=== PATIENT | female | born 1985 | race Caucasian/White ===

== ENCOUNTER 2018-01-27 15:20 | Outpatient (RCR) | payer OTHER, SELFPAY ==
--- NOTE | 2018-01-27 15:30 | IE_ITS ---
Date: January 27, 2018 Referring: AI Pineda M.D. Diagnosis: Plantar fasciitis P.T. 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 This is worse with weight bearing, particularly towards the latter part of the day. This does not interfere with sleeping pattern and is generally comfortable with sitting. A 32 year old female who was seen by myself approximately 2 years ago with plantar fasciitis. She was fitted with semi rigid orthotics, some accommodative type orthotics while waiting for the device to arrive. A couple weeks ago she developed a recurrence of her symptoms along with R forefoot pain. She was referred back to PT. Pain Ratin/10 Pain Location: Throughout the plantar and dorsal aspect of her feet R greater than L. Prior Level of Function: Independent with all ADL's. Current Level of Function: Has pain with with walking more than a couple 100 yards, standing for less than an hour, performing her typical household and recreational activities. 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 Falls in the last year: __X__ No ____Yes - How many? ____ - (if over 2, balance SM needs to be completed) Reported hospitalizations in the last year - __X__ No ____ Yes - Dates of admission/reason: Medications: Amitriptyline, anti-hypertensions. Quality of Life: ____ Excellent ____ Good __x__ Fair ____ Poor Standardized Measures: LEFS score: 34% OBJECTIVE: Posture: Hyperpronator, morbid obesity. Gait: Ambulates with mild antalgia on the R from mid stance to toe off. Heel walking creates some mild plantar heel discomfort, toe walking creates mid foot discomfort on the R. Palpation: Some mild tenderness to palpation throughout the plantar fascia bilaterally. Also between the 2nd and 3rd and 3rd, 4th met heads on the R greater than L as well as the metatarsal joints R foot, mild warmth. Edema: Mild swelling throughout the ankle/foot complex bilaterally. ROM: Bilateral hip, knee, talocrural, subtalar and mid tarsal movements are full and painless with movement other than her R mid foot, [id number] with supination and dorsiflexion. Digit motion is non-irritable (+) pain with MTP compression on the R. Joint Accessory Motion: She has good mobility between the first-5th ray intermetatarsal joints. Strength: Tolerates good resistance to ankle extrinsics including posterior tibialis without pain. Neuro: (-) Tinel sign over the superficial peroneal nerve or tarsal tunnel. Special Tests: Has a forefoot varus of approximately 6 degrees with subtalar neutral. Observation of her current orthotic devices show that she has broken the R orthotic in 06/07 and the L orthotic top cover is completely worn. She has been using her accommodative type orthotics over the last day or two and her symptoms have diminished about 50%. Treatment: IE: [id number] Initial evaluation along with issuing her a pair of over the counter semi rigid orthotics. Direct treatment time: 45 mins Total treatment time: 45 mins ASSESSMENT: Patient is a 32-year-old obese female, referred for PT services with the diagnosis of plantar fasciitis. Patient presents with clinical signs and symptoms consistent with this diagnosis, but also appears to have some inflammation of the R midfoot, possible Concepcion's neuroma, as demonstrated by the following impairment level findings: End range pain with midfoot movements along with MTP compression and tenderness to palpation. Impairments are contributing to the following functional limitations: difficulty standing, walking for any prolonged periods. Patient is assessed as: __X__ Low 02807 ____ Moderate 10163 ____ High 08994 complexity, based on the following: History: (list): Recurrence of plantar fasciitis with midfoot inflammation, and possible Concepcion's Neuroma See comorbidities and social history. Examination: (list): X See above for functional limitations and impairments. Presentation: Stable . X Evolving Unstable Decision-Making: X` Low complexity X Moderate complexity High complexity % Disability based on LEFS of 34% STG: __4__ weeks. 1: Decrease stress to the longitudinal arch to allow healing of plantar fascia and midfoot in hopes that it will normalize her weight bearing activities. LTG: __8__ weeks. 1: Return to premorbid level of function. PLAN: Session today consisted of the evaluation along with issuing her a semi rigid orthotic as well as recommending a better pair of walking shoes with solid heel counter, shank and good cushioning. Minimize any unnecessary weight bearing activities. She has Motrin 600mg at home and she can discuss this with her PCP or pharmacist regarding dosage and use. She will have a follow up in 2 1/2 weeks, unless she exacerbates between now and then, she will contact me. Thank you for this referral. Please do not hesitate to contact me with any questions or concerns regarding this patient's plan of care.
== END 2018-02-03 23:59 | disposition home or self-care (01) ==
LOC: PT 15:20
DX: M72.2 Plantar fascial fibromatosis (principal)
CPT/HCPCS: 97161

== ENCOUNTER 2018-02-17 06:47 | Emergency (ER) | payer OTHER, SELFPAY ==
[2018-02-17 06:50] VITALS: BP 122/86; PULSE 90; RESP 18; TEMP 36.5; O2SAT 99
--- NOTE | 2018-02-17 07:00 | W.ED.GENAD ---
Discharge Plan Disposition Patient Disposition: HOME Condition: Stable Discharge Details Chief Complaint: EyeProblem Clinical Impression: Hordeolum externum of right eye Primary Care Provider: Laurence Wallace ED Provider: K[facility] Home Meds and New Rx's Prescriptions: New sulfamethoxazole-trimethoprim [Bactrim DS] 800-160 mg tablet 1 tab PO DAILY Qty: 14 RF: 0 Continue amitriptyline 25 MG tablet 1 tab PO HS Qty: 90 RF: 4 cholecalciferol (vitamin D3) [Vitamin D3] 2,000 UNIT capsule 2,000 unit PO DAILY Qty: 90 RF: 0 medroxyprogesterone [Provera] 10 MG tablet 10 mg PO DAILY MDD 1 Qty: 10 RF: 0 medroxyprogesterone 10 MG tablet 10 mg PO DAILY 90 Days Qty: 30 RF: 1 hydrochlorothiazide 25 MG tablet 25 mg PO DAILY Qty: 30 RF: 1 metformin 500 MG tablet extended release 24hr 500 mg PO DAILY Qty: 90 RF: 1 miconazole (bulk) 5 GM powder 1 applic Miscellaneous PRN PRNRF: 0 Discharge Instructions Instructions: [facility] (ED) Additional Instructions: if you're not better by next week using warm compresses frequently then start taking the antibiotics if you have deep eye pain, changes in vision or fevers return to the emergency department Discharge Data Discharge Physician: K[facility] Medical Decision Making MDM Narrative Medical decision making narrative: Patient comes in with right upper eye lid swelling since yesterday, denies vision changes or discharge. She has mild swelling and redness to the medial right upper eye and what appears to be a stye in this area. Her conjunctiva is normal without redness or pain. Suspect stye, will have her start warm compresses and will provide abx prescription as she is going on vacation and won't be able to see her pcp if it worsens. Return precautions given. No pain on eomi to suggest orbital cellulitis Differential Diagnosis cellulitis, stye HPI - General Adult General Mode of arrival: ambulatory. Date/Time Provider Initiated Documentation: 02/17/18 06:50. Limitations to Documentation: no limitations. Information obtained by: patient. History of Present Illness 32 year old F presents to the emergency department with the chief complaint of right upper eye lid swelling, described as mild, with intensity rated at 2. Quality is described as burning, and is localized to the face. Patient reports no radiation. Patient started experiencing this day(s) (1) and it has been constant. No relieving factors improve symptom(s), No exacerbating factors reported . Patient notes no other symptoms.. Patient did receive the following treatments prior to arrival, none Related Data Home Medications Medication Instructions Recorded Confirmed miconazole (bulk) 1 applic MISCELLANEOUS PRN PRN 10/25/16 02/17/18 Previous Rx's Medication Instructions Recorded amitriptyline 1 tab PO HS #90 tab-cap 02/24/17 cholecalciferol (vitamin D3) 2,000 unit PO DAILY #90 tab 08/08/17 [Vitamin D3] medroxyprogesterone [Provera] 10 mg PO DAILY #10 t MDD 1 08/15/17 medroxyprogesterone 10 mg PO DAILY 90 Days #30 tab-cap 10/28/17 hydrochlorothiazide 25 mg PO DAILY #30 tab-cap 01/05/18 metformin 500 mg PO DAILY #90 tab-cap 01/05/18 sulfamethoxazole-trimethoprim 1 tab PO DAILY #14 tab 02/17/18 [Bactrim DS] Allergies Allergy/AdvReac Type Severity Reaction Status Date / Time cefaclor Allergy Skin Rash Unverified 02/17/18 06:55 General Stated Complaint: EyeProblem IGNACIO: 4 Review of Systems Review of Systems All systems reviewed & are unremarkable except as noted in HPI and below Constitutional Denies chills, Denies fever(s) and Denies weakness Eyes Patient Denies loss of vision ENT Denies change in voice Cardiovascular Denies chest pain and Denies dyspnea Respiratory Denies dyspnea Gastrointestinal Denies abdominal pain, Denies nausea and Denies vomiting Genitourinary Denies dysuria Musculoskeletal Denies joint swelling Integumentary/Breasts Denies rash Neurologic Denies loss of vision and Denies weakness Psychiatric Denies depression Endocrine Denies cold intolerance and Denies heat intolerance Allergic/Immunologic Reports urticaria PFSH Family History Mother Essential hypertension Father Essential hypertension Hyperlipidemia Brother No problems noted. Grandfather Essential hypertension Hyperlipidemia Cerebrovascular accident Grandfather Heart disease Cerebrovascular accident Multiple sclerosis Grandmother Diabetes Essential hypertension Heart disease Hyperlipidemia Neoplasm Grandmother Essential hypertension Heart disease Hyperlipidemia Myocardial infarction Neoplasm Cerebrovascular accident Maternal Uncle No problems noted. Social History Smoking/Tobacco Use Status: Current every day Surgical History Dilation and curettage (~2007) Ligation of fallopian tube (~2007) Tonsillectomy (~2000) Exam Const General: no acute distress Orientation: alert [facility] Head: normal to inspection Ears: external ears normal General nose exam: external nose normal Mouth: moist mucous membranes Eyes Alignment and Position: alignment normal Eyelids: other (right upper medial eyelid redness and swelling) Cornea: corneas normal Pupils: PERRL EOM: EOM intact bilaterally Neck Neck: normal visual inspection Resp Effort & Inspection: normal respiratory effort and able to speak in complete sentences Cardio Rate: regular rate Skin General skin exam: no rashes or lesions noted Neuro General: alert and oriented x3 Extrem General: normal to inspection Psych Mental Status: mental status grossly normal Course Vital Signs Temperature 36.5 C 02/17/18 06:50 Pulse 90 02/17/18 06:50 Respiratory Rate 18 02/17/18 06:50 Blood Pressure 122/86 02/17/18 06:50 Pulse Oximetry 99 02/17/18 06:50 Temperature 36.5 C 02/17/18 06:50 Pulse 90 02/17/18 06:50 Respiratory Rate 18 02/17/18 06:50 Blood Pressure 122/86 02/17/18 06:50 Pulse Oximetry 99 02/17/18 06:50
--- NOTE | 2018-02-17 07:03 | ED.GENADUL_ITS ---
Discharge Plan Disposition Patient Disposition: HOME Condition: Stable Discharge Details Chief Complaint: EyeProblem Clinical Impression: Hordeolum externum of right eye Primary Care Provider: Laurence Wallace ED Provider: [facility] Home Meds and New Rx's Prescriptions: New sulfamethoxazole-trimethoprim [Bactrim DS] 800-160 mg tablet 1 tab PO DAILY Qty: 14 RF: 0 Continue amitriptyline 25 MG tablet 1 tab PO HS Qty: 90 RF: 4 cholecalciferol (vitamin D3) [Vitamin D3] 2,000 UNIT capsule 2,000 unit PO DAILY Qty: 90 RF: 0 medroxyprogesterone [Provera] 10 MG tablet 10 mg PO DAILY MDD 1 Qty: 10 RF: 0 medroxyprogesterone 10 MG tablet 10 mg PO DAILY 90 Days Qty: 30 RF: 1 hydrochlorothiazide 25 MG tablet 25 mg PO DAILY Qty: 30 RF: 1 metformin 500 MG tablet extended release 24hr 500 mg PO DAILY Qty: 90 RF: 1 miconazole (bulk) 5 GM powder 1 applic Miscellaneous PRN PRNRF: 0 Discharge Instructions Instructions: [facility] (ED) Additional Instructions: if you're not better by next week using warm compresses frequently then start taking the antibiotics if you have deep eye pain, changes in vision or fevers return to the emergency department Discharge Data Discharge Physician: [facility] Medical Decision Making MDM Narrative Medical decision making narrative: Patient comes in with right upper eye lid swelling since yesterday, denies vision changes or discharge. She has mild swelling and redness to the medial right upper eye and what appears to be a stye in this area. Her conjunctiva is normal without redness or pain. Suspect stye, will have her start warm compresses and will provide abx prescription as she is going on vacation and won't be able to see her pcp if it worsens. Return precautions given. No pain on eomi to suggest orbital cellulitis Differential Diagnosis cellulitis, stye HPI - General Adult General Mode of arrival: ambulatory . Date/Time Provider Initiated Documentation: 02/17/18 06:50 . Limitations to Documentation: no limitations . Information obtained by: patient . History of Present Illness 32 year old F presents to the emergency department with the chief complaint of right upper eye lid swelling, described as mild, with intensity rated at 2. Quality is described as burning, and is localized to the face. Patient reports no radiation. Patient started experiencing this day(s) (1) and it has been constant. No relieving factors improve symptom(s), No exacerbating factors reported . Patient notes no other symptoms.. Patient did receive the following treatments prior to arrival, none Related Data Home Medications Medication Instructions Recorded Confirmed miconazole (bulk) 1 applic MISCELLANEOUS PRN PRN 10/25/16 02/17/18 Previous Rx's Medication Instructions Recorded amitriptyline 1 tab PO HS #90 tab-cap 02/24/17 cholecalciferol (vitamin D3) 2,000 unit PO DAILY #90 tab 08/08/17 [Vitamin D3] medroxyprogesterone [Provera] 10 mg PO DAILY #10 t MDD 1 08/15/17 medroxyprogesterone 10 mg PO DAILY 90 Days #30 tab-cap 10/28/17 hydrochlorothiazide 25 mg PO DAILY #30 tab-cap 01/05/18 metformin 500 mg PO DAILY #90 tab-cap 01/05/18 sulfamethoxazole-trimethoprim 1 tab PO DAILY #14 tab 02/17/18 [Bactrim DS] Allergies Allergy/AdvReac Type Severity Reaction Status Date / Time cefaclor Allergy Skin Rash Unverified 02/17/18 06:55 General Stated Complaint: EyeProblem IGNACIO: 4 Review of Systems Review of Systems All systems reviewed & are unremarkable except as noted in HPI and below Constitutional Denies chills, Denies fever(s) and Denies weakness Eyes Patient Denies loss of vision ENT Denies change in voice Cardiovascular Denies chest pain and Denies dyspnea Respiratory Denies dyspnea Gastrointestinal Denies abdominal pain, Denies nausea and Denies vomiting Genitourinary Denies dysuria Musculoskeletal Denies joint swelling Integumentary/Breasts Denies rash Neurologic Denies loss of vision and Denies weakness Psychiatric Denies depression Endocrine Denies cold intolerance and Denies heat intolerance Allergic/Immunologic Reports urticaria PFSH Family History Mother Essential hypertension Father Essential hypertension Hyperlipidemia Brother No problems noted. Grandfather Essential hypertension Hyperlipidemia Cerebrovascular accident Grandfather Heart disease Cerebrovascular accident Multiple sclerosis Grandmother Diabetes Essential hypertension Heart disease Hyperlipidemia Neoplasm Grandmother Essential hypertension Heart disease Hyperlipidemia Myocardial infarction Neoplasm Cerebrovascular accident Maternal Uncle No problems noted. Social History Smoking/Tobacco Use Status: Current every day Surgical History Dilation and curettage (~2007) Ligation of fallopian tube (~2007) Tonsillectomy (~2000) Exam Const General: no acute distress Orientation: alert [facility] Head: normal to inspection Ears: external ears normal General nose exam: external nose normal Mouth: moist mucous membranes Eyes Alignment and Position: alignment normal Eyelids: other (right upper medial eyelid redness and swelling) Cornea: corneas normal Pupils: PERRL EOM: EOM intact bilaterally Neck Neck: normal visual inspection Resp Effort & Inspection: normal respiratory effort and able to speak in complete sentences Cardio Rate: regular rate Skin General skin exam: no rashes or lesions noted Neuro General: alert and oriented x3 Extrem General: normal to inspection Psych Mental Status: mental status grossly normal Course Vital Signs Temperature 36.5 C 02/17/18 06:50 Pulse 90 02/17/18 06:50 Respiratory Rate 18 02/17/18 06:50 Blood Pressure 122/86 02/17/18 06:50 Pulse Oximetry 99 02/17/18 06:50 Temperature 36.5 C 02/17/18 06:50 Pulse 90 02/17/18 06:50 Respiratory Rate 18 02/17/18 06:50 Blood Pressure 122/86 02/17/18 06:50 Pulse Oximetry 99 02/17/18 06:50
== END 2018-02-17 07:09 | disposition home or self-care (01) ==
LOC: ER 07:18
PROVIDERS: Emergency Provider Emergency Medicine
DX: H00.011 Hordeolum externum right upper eyelid (principal)
CPT/HCPCS: 99283

== ENCOUNTER 2018-04-09 07:31 | Emergency (ER) | payer OTHER, SELFPAY ==
[2018-04-09] VITALS (10 sets, daily range): BP systolic 110–144; BP diastolic 73–83; PULSE 92–111; RESP 4–20; TEMP 36.5–37.1; O2SAT 93–97
--- NOTE | 2018-04-09 07:45 | DI.RAD_ITS ---
SYMPTOM/DIAGNOSIS: COUGH CHEST X-RAY: PA and lateral. No priors. Heart size and pulmonary vasculature are within normal limits. There is mild widening of the right paratracheal stripe. This may be due to patient positioning. The lungs are clear. No effusions or pneumothoraces are identified. The bones are intact. IMPRESSION: No acute pulmonary process. 2. Prominence of the right paratracheal stripe. This may be due to patient positioning. Chest x-ray should be considered for re-evaluation.
[2018-04-09] MEDS: Albuterol/Ipratropium 3 ML UPD VIAL UPD ×2 (07:49)
--- NOTE | 2018-04-09 08:12 | ED.GENADUL_ITS ---
Discharge Plan Disposition Patient Disposition: HOME Discharge Details Chief Complaint: RespSymp Clinical Impression: Pneumonia Primary Care Provider: Laurence Wallace ED Provider: Edu Kimbrough Home Meds and New Rx's Prescriptions: New doxycycline hyclate 100 mg capsule 100 mg PO BID Qty: 19 RF: 0 prednisone 20 mg tablet 40 mg PO BID Qty: 8 RF: 0 Continue cholecalciferol (vitamin D3) [Vitamin D3] 2,000 UNIT capsule 2,000 unit PO DAILY Qty: 90 RF: 0 medroxyprogesterone [Provera] 10 MG tablet 10 mg PO DAILY MDD 1 Qty: 10 RF: 0 medroxyprogesterone 10 MG tablet 10 mg PO DAILY 90 Days Qty: 30 RF: 1 metformin 500 MG tablet extended release 24hr 500 mg PO DAILY Qty: 90 RF: 1 amitriptyline 25 mg tablet 25 mg PO HS Qty: 90 RF: 4 hydrochlorothiazide 25 mg tablet 25 mg PO DAILY Qty: 30 RF: 1 miconazole (bulk) 5 GM powder 1 applic Miscellaneous PRN PRNRF: 0 Discharge Instructions Instructions: Pneumonia (ED) Additional Instructions: Please take antibiotic as prescribed. Use prednisone as prescribed. Use albuterol inhaler with spacer 2 puffs every 4 hours as needed for shortness of breath or wheeze. Please contact your primary care physician to arrange follow-up to be seen this week. Call tomorrow. Your chest xray revealed a right paratracheal stripe that is thickened and may be related to mild rotation vs a chronic process -- be sure to discuss this with your doctor as additional outpatient testing will be needed. Return to the ER for any worsening or new concerning symptoms. Stand Alone Forms: Work Release Referrals: Laurence Wallace NP [Primary Care Provider] - Medical Decision Making 8:10 -- 32yo f smoker with cough and SOB the past 2-3 days. Saturating low 90s with expiratory wheeze. Will treat with duoneb x2 and reassess. Plan to check cxr to assess for PNA not apparent on auscultation. 10:30 -- xray reviewed and interpreted by me: Question retrocardiac opacity. Plan to treat for pneumonia. reassessed and wheeze resolved after neb treatment. Plan to give albuterol inhaler with spacer and new product trainer on this use. Plan to treat with prednisone to reduce inflammation as well as doxycycline Walking pulse ox remained stable >95% after nebs. Patient will require close follow-up with pcp this week. HPI General Mode of arrival: ambulatory . Date/Time Provider Initiated Documentation: 04/09/18 07:41 . Limitations to Documentation: no limitations . Information obtained by: patient . HPI Narrative: 32-year-old female smoker, here with chief complaint of cough. Patient notes 2-3 days of persistent and worsening cough. Intermittently productive of yellow sputum. She has associated shortness of breath. No associated chest pain. No leg swelling. No fever. No recent long distance travel. She does note that her children have been sick with cough recently. Related Data Home Medications Medication Instructions Recorded Confirmed miconazole (bulk) 1 applic MISCELLANEOUS PRN PRN 10/25/16 02/17/18 cholecalciferol (vitamin D3) 2,000 unit PO DAILY #90 tab 08/08/17 02/17/18 [Vitamin D3] medroxyprogesterone [Provera] 10 mg PO DAILY #10 t MDD 1 08/15/17 medroxyprogesterone 10 mg PO DAILY 90 Days #30 tab-cap 10/28/17 metformin 500 mg PO DAILY #90 tab-cap 01/05/18 04/09/18 amitriptyline 25 mg tablet 25 mg PO HS #90 tab-cap 02/28/18 04/09/18 hydrochlorothiazide 25 mg tablet 25 mg PO DAILY #30 tab-cap 03/09/18 04/09/18 doxycycline hyclate 100 mg PO BID #19 cap 04/09/18 prednisone 40 mg PO BID #8 tab 04/09/18 Previous Rx's Medication Instructions Recorded cholecalciferol (vitamin D3) 2,000 unit PO DAILY #90 tab 08/08/17 [Vitamin D3] medroxyprogesterone [Provera] 10 mg PO DAILY #10 t MDD 1 08/15/17 medroxyprogesterone 10 mg PO DAILY 90 Days #30 tab-cap 10/28/17 metformin 500 mg PO DAILY #90 tab-cap 01/05/18 amitriptyline 25 mg tablet 25 mg PO HS #90 tab-cap 02/28/18 hydrochlorothiazide 25 mg tablet 25 mg PO DAILY #30 tab-cap 03/09/18 doxycycline hyclate 100 mg PO BID #19 cap 04/09/18 prednisone 40 mg PO BID #8 tab 04/09/18 Allergies Allergy/AdvReac Type Severity Reaction Status Date / Time cefaclor Allergy Skin Rash Unverified 04/09/18 07:40 General Stated Complaint: RespSymp IGNACIO: 3 Review of Systems Review of Systems All systems reviewed & are unremarkable except as noted in HPI and below PFSH Family History Mother Essential hypertension Father Essential hypertension Hyperlipidemia Brother No problems noted. Grandfather Essential hypertension Hyperlipidemia Cerebrovascular accident Grandfather Heart disease Cerebrovascular accident Multiple sclerosis Grandmother Diabetes Essential hypertension Heart disease Hyperlipidemia Neoplasm Grandmother Essential hypertension Heart disease Hyperlipidemia Myocardial infarction Neoplasm Cerebrovascular accident Maternal Uncle No problems noted. Social History Smoking/Tobacco Use Status: Current every day Surgical History Dilation and curettage (~2007) Ligation of fallopian tube (~2007) Tonsillectomy (~2000) Exam Const General: cooperative and no acute distress HENMT Head: normocephalic and atraumatic Mouth: moist mucous membranes Eyes Conjunctivae: normal conjunctivae Sclera: normal sclerae EOM: EOM intact bilaterally Neck Neck: trachea midline and supple Resp Effort & Inspection: able to speak in complete sentences, cough and not labored Auscultation: no rales, no rhonchi and wheezes expiratory wheezes and scattered wheezes Cardio Jugular venous pressure: no JVD Rate: regular rate and not tachycardic Rhythm: regular rhythm GI Palpation: soft, not firm, no guarding, no masses, not rigid and nontender Skin General skin exam: no rashes or lesions noted Neuro General: alert, awake, oriented x3 and tone normal Extrem General: no edema Psych Appearance: grossly normal Mental Status: mental status grossly normal Speech and Movement: speech and movement normal Course Vital Signs Temperature 36.8 C 04/09/18 07:37 Pulse 111 H 04/09/18 07:37 Respiratory Rate 20 04/09/18 07:37 Blood Pressure 144/83 H 04/09/18 07:37 Pulse Oximetry 94 L 04/09/18 07:37 Temperature 36.8 C 04/09/18 07:37 Temperature Source Temporal Artery Scan 04/09/18 07:37 Pulse 110 H 04/09/18 07:49 Respiratory Rate 20 04/09/18 07:37 Respiratory Effort 04/09/18 07:42 Respiratory Depth Shallow 04/09/18 07:42 Blood Pressure 144/83 H 04/09/18 07:37 Blood Pressure Position Sitting 04/09/18 07:37 Pulse Oximetry 93 L 04/09/18 07:49 Oxygen Delivery Method Room Air 04/09/18 07:49 Oxygen Flow Rate 0 04/09/18 07:49 Pain Level 0 04/09/18 07:37
--- NOTE | 2018-04-09 10:27 | NUR.NOTE ---
Nursing Note: walked in hallway to lab--Sao2 94-95--pulse 100 to 118
[2018-04-09] MEDS: predniSONE 20 MG TAB 60 MG PO (10:32)
[2018-04-09] MEDS: Albuterol HFA 8 GM 60 PUFF INH IH (10:33)
[2018-04-09] MEDS: Inhaler, Assist Device 1 EACH MC (10:33)
[2018-04-09] MEDS: Doxycycline Hyclate 100 MG CAP PO (10:33)
--- NOTE | 2018-04-09 10:40 | DI.VRAD_ITS ---
EXAM: XR Chest, 2 Views EXAM DATE/TIME: 04/09/2018 9:34 AM CLINICAL HISTORY: 32 years old, female; Signs and symptoms; Other: Cough; Additional info: Cought and SOB for 2wks TECHNIQUE: XR of the chest, 2 views. COMPARISON: No relevant prior studies available. FINDINGS: Lungs: The RIGHT paratracheal stripe is thickened which may be accentuated by patient's mild rotation. No consolidation. Mild linear scarring versus subsegmental atelectasis LEFT lung base. Pleural space: No pleural effusion. No pneumothorax. Heart/Mediastinum: No cardiomegaly. Bones/joints: Unremarkable. IMPRESSION: 1. No definite acute pulmonary process. 2. The RIGHT paratracheal stripe is thickened which may be accentuated by patient's rotation. Followup study is recommended. Dictated and Authenticated by: Emma Melissa MD. Ordering:MICAH GONZALEZ MD
--- NOTE | 2018-04-12 10:39 | NUR.NOTE ---
Nursing Note: A follow up appointment was made with [facility] for 04/13 for follow up to patient's ER visit for asthma/pneumonia on 04/09/18.
== END 2018-04-09 11:17 | disposition home or self-care (01) ==
PROVIDERS: Emergency Provider Student in an Organized Health Care Education/Training Program
DX: J18.9 Pneumonia, unspecified organism (principal); R06.02 Shortness of breath; F17.210 Nicotine dependence, cigarettes, uncomplicated; R91.8 Other nonspecific abnormal finding of lung field
CPT/HCPCS: 94640; 99284; 71046; 99285; J7512; J7620

== ENCOUNTER 2018-06-05 10:15 | Outpatient (CLI) | payer OTHER, SELFPAY ==
[2018-06-05 11:39] LABS: ALT 34 U/L (12-78); AST 13 U/L (15-37); Alkaline Phosphatase 92 U/L (46-116); Anion Gap 6.3 mmol/L (3-11); BUN 14 mg/dL (7-18); Bilirubin, Total 0.3 mg/dL (0.2-1.0); CO2 30.7 mmol/L (21.0-32.0); CREATININE 0.99 mg/dL (0.55-1.02); Calcium 8.4 mg/dL (8.5-10.1); Chloride 104 mmol/L (98-107); Glucose 114 mg/dL (70-100); Potassium 4.6 mmol/L (3.5-5.1); Sodium 141 mmol/L (136-145); Total Protein 6.4 g/dL (6.4-8.2)
[2018-06-05 11:55] LABS: Hemoglobin A1C 6.9 % (4.5-6.2)
[2018-06-05 13:06] LABS: Vitamin D 25 Total 38.1 ng/ml (30-100)
== END 2018-06-05 10:35 ==
DX: R73.01 Impaired fasting glucose (principal); G47.33 Obstructive sleep apnea (adult) (pediatric); E55.9 Vitamin D deficiency, unspecified; R53.83 Other fatigue
CPT/HCPCS: 36415; 80053; 82306; 83036

== ENCOUNTER 2018-07-06 10:02 | Emergency (ER) | payer OTHER, SELFPAY ==
[2018-07-06 10:28] VITALS: BP 132/87; PULSE 105; RESP 20; TEMP 36.5; O2SAT 96
[2018-07-06 10:30] VITALS: BP 132/87; PULSE 106; RESP 18; TEMP 36.5; O2SAT 96
--- NOTE | 2018-07-06 10:44 | ED.GENADUL_ITS ---
Discharge Plan Disposition Patient Disposition: HOME Condition: Stable Discharge Details Chief Complaint: EarProblem Clinical Impression: Acute serous otitis media of right ear, URI (upper respiratory infection) Primary Care Provider: Edi Villarreal ED Provider: Manuel Grady Home Meds and New Rx's Prescriptions: New fluticasone [Flonase Allergy Relief] 50 mcg/actuation spray,suspension 1 spray JENNIFER DAILY 14 Days RF: 0 Continued Ventolin HFA 90 mcg/actuation HFA aerosol inhaler 2 puff IH Q4H RF: 0 escitalopram oxalate 10 mg tablet 10 mg PO DAILY Qty: 30 RF: 2 cholecalciferol (vitamin D3) [Vitamin D3] 2,000 UNIT capsule 2,000 unit PO DAILY Qty: 90 RF: 0 amitriptyline 25 mg tablet 25 mg PO HS Qty: 90 RF: 4 metformin 500 mg tablet extended release 24hr 1,000 mg PO DAILY Qty: 180 RF: 1 miconazole (bulk) 5 GM powder 1 applic Miscellaneous PRN PRNRF: 0 Discharge Instructions Instructions: Upper Respiratory Infection (ED), Serous Otitis Media (ED) Additional Instructions: Return to the emergency department as needed for any new or worsening symptoms that are significant otherwise use Flonase daily for the next 2 weeks and [id number] nasal spray or irrigant. Follow-up with primary care provider if not improving over the next 2-4 weeks. Referrals: Edi Villarreal [Primary Care Provider] - (As needed for reassessment) Discharge Data Discharge Date/Time-TO BE ENTERED AT DEPARTURE: 07/06/18 11:12 Medical Decision Making Patient presenting the emergency department for chief complaint of 2 days of earache. She states that she last night felt throbbing pain to her ear. She does state recent malaise and nasal congestion otherwise typical viral cold symptoms that she is not concerned about mostly concerned about her ear. Patient denies any fever chills, dizziness, severe headache. Physical exam shows some bulging to the right TM with clear fluid present behind otherwise HEENT, respiratory and other examination is unremarkable. No mastoid tenderness is noted along with no lymphadenopathy. Concern for serous otitis media secondary to upper respiratory tract infection presumably viral in nature. Patient encouraged to do nasal saline rinse/irrigant, Flonase, and use ibuprofen as needed for discomfort. Patient to follow-up with primary care provider as needed or return for any new or significant worsening of symptoms. After discussion of diagnosis and plan of care patient has no further needs, que stions, or concerns and states clear understanding to return to the emergency department for any worsening symptoms. HPI General Mode of arrival: ambulatory . Date/Time Provider Initiated Documentation: 07/06/18 10:30 . Limitations to Documentation: no limitations . Information obtained by: patient and RN notes reviewed . History of Present Illness 33 year old F presents to the emergency department with the chief complaint of right ear pain, described as mild, with intensity rated at 5. Quality is described as aching (throbbing), and is localized to the right (ear). Patient started experiencing this day(s) (2) and it has been constant. No relieving factors improve symptom(s), No exacerbating factors reported . Patient did receive the following treatments prior to arrival, none Related Data Home Medications Medication Instructions Recorded Confirmed miconazole (bulk) 1 applic MISCELLANEOUS PRN PRN 10/25/16 07/06/18 cholecalciferol (vitamin D3) 2,000 unit PO DAILY #90 tab 08/08/17 07/06/18 [Vitamin D3] amitriptyline 25 mg tablet 25 mg PO HS #90 tab-cap 02/28/18 07/06/18 albuterol sulfate HFA 90 2 puff IH Q4H gm 04/10/18 07/06/18 mcg/actuation aerosol inhaler escitalopram 10 mg tablet 10 mg PO DAILY #30 tab 06/07/18 07/06/18 metformin ER 500 mg 1,000 mg PO DAILY #180 tab-cap 06/08/18 07/06/18 tablet,extended release 24hr fluticasone [Flonase Allergy 1 spray JENNIFER DAILY 14 Days gm 07/06/18 Relief] Previous Rx's Medication Instructions Recorded cholecalciferol (vitamin D3) 2,000 unit PO DAILY #90 tab 08/08/17 [Vitamin D3] amitriptyline 25 mg tablet 25 mg PO HS #90 tab-cap 02/28/18 escitalopram 10 mg tablet 10 mg PO DAILY #30 tab 06/07/18 metformin ER 500 mg 1,000 mg PO DAILY #180 tab-cap 06/08/18 tablet,extended release 24hr fluticasone [Flonase Allergy 1 spray JENNIFER DAILY 14 Days gm 07/06/18 Relief] Allergies Allergy/AdvReac Type Severity Reaction Status Date / Time cefaclor Allergy Skin Rash Verified 06/07/18 15:39 General Stated Complaint: EarProblem IGNACIO: 5 Review of Systems Constitutional Denies chills, Denies fever(s) and Denies headache(s) ENT Reports as per HPI, Denies dizziness, Reports otalgia, Denies headache(s), Reports nasal congestion, Reports nasal discharge, Denies nasal obstruction, Denies sinus pain, Denies sore throat and Denies throat swelling Respiratory Denies cough Neurologic Denies dizziness and Denies headache(s) Allergic/Immunologic Denies throat swelling PFSH Surgical History Dilation and curettage (~2007) Ligation of fallopian tube (~2007) Tonsillectomy (~2000) Family History Mother Essential hypertension Hyperlipidemia Father Essential hypertension Hyperlipidemia Maternal Grandfather Essential hypertension Hyperlipidemia Stroke Paternal Grandfather Heart disease Stroke Multiple sclerosis Hyperlipidemia Maternal Grandmother Diabetes Essential hypertension Heart disease Hyperlipidemia Breast cancer Stomach cancer Ovarian ca Bladder cancer Paternal Grandmother Essential hypertension Heart disease Hyperlipidemia Myocardial infarction Neoplasm Stroke Social History household members: children housing: house pets and animals: Yes pets and animals: cat(s), dog(s) and other details: 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 [employer]OG Smoking/Tobacco Use Status: Former Tobacco Use how long ago did patient quit smoking: APR 2018 second hand exposure: Yes alcohol intake: current alcohol intake frequency: holidays/special occasions only Alcohol type: beer substance use type: does not use airam/shinto: Denominational Exam Const General: cooperative, comfortable and no acute distress Orientation: alert and awake HENIA Head: normal to inspection, normocephalic and atraumatic Ears: hearing grossly normal bilaterally, TM normal on the left, mastoids no rmal, no periauricular adenopathy and TM abnormal with fluid behind the TM on the right (clear) and with loss of landmarks on the right General nose exam: external nose normal Face and sinus: normal facial exam and no erythema Neck Neck: normal visual inspection, full ROM, no lymphadenopathy, no meningeal signs, trachea midline and supple Neuro General: alert, awake, oriented x3, gait normal and moves all extremities Cognition: normal cognition Speech: speech normal Course Vital Signs Temperature 36.5 C 07/06/18 10:28 Pulse 105 H 07/06/18 10:28 Respiratory Rate 20 07/06/18 10:28 Blood Pressure 132/87 07/06/18 10:28 Pulse Oximetry 96 07/06/18 10:28 Temperature 36.5 C 07/06/18 10:30 Temperature Source Temporal Artery Scan 07/06/18 10:28 Pulse 106 H 07/06/18 10:30 Respiratory Rate 18 07/06/18 10:30 Respiratory Effort Non-Labored 07/06/18 10:32 Blood Pressure 132/87 07/06/18 10:30 Blood Pressure Position Sitting 07/06/18 10:30 Pulse Oximetry 96 07/06/18 10:30 Oxygen Delivery Method Room Air 07/06/18 10:30 Oxygen Flow Rate 0 07/06/18 10:30 Pain Level 5 07/06/18 10:30
== END 2018-07-06 11:12 | disposition home or self-care (01) ==
PROVIDERS: Emergency Provider Nurse Practitioner Family; PCP Family Medicine
DX: H65.01 Acute serous otitis media, right ear (principal); J06.9 Acute upper respiratory infection, unspecified
CPT/HCPCS: 99283

== ENCOUNTER 2019-04-12 16:46 | Outpatient (REF) | payer BC, SELFPAY ==
--- NOTE | 2019-04-12 15:10 | ENDOMET_PTH ---
PATIENT: Clarita Sherman LOC: [facility] U#:[id number] AGE/SX: 33/F ROOM: RE04/12/[address]: Jamar Amezcua MD : 1985 BED: DIS: 04/12/2019 SPEC #: [id number] RECD: 04/12/19 17:23 STATUS: HYACINTH REQ #: [id number] SHASHA: 04/12/19 15:[address]: Jamar Amezcua DEPT: Surgical Specimen RECD BY: Geno Goldman ENTERED: 04/12/19 17:24 SP TYPE: Endomet OTHR DR: Laurence Wallace APRN Tissues: 1 - ENDOMETRIUM BX/CURRETTE Procedures: GROSS AND MICRO LEVEL 4 Comments: [id number]
== END 2019-04-12 17:06 ==
LOC: LBN 16:46
PROVIDERS: Visit Provider Obstetrics & Gynecology
DX: N84.0 Polyp of corpus uteri (principal); N85.00 Endometrial hyperplasia, unspecified; N92.0 Excessive and frequent menstruation with regular cycle
CPT/HCPCS: 88305

== ENCOUNTER 2019-06-10 14:09 | Emergency (ER) | payer BC, SELFPAY ==
[2019-06-10 14:20] VITALS: BP 137/92; PULSE 75; RESP 18; TEMP 37.1; O2SAT 96
--- NOTE | 2019-06-10 16:06 | W.ED.GENAD ---
Discharge Plan Disposition Patient Disposition: HOME Condition: Stable Discharge Details Chief Complaint: RespSymp Clinical Impression: Thoracic myofascial strain Primary Care Provider: Laurence Wallace ED Provider: Fariha Mcmillan Home Meds and New Rx's Prescriptions: New methocarbamol 500 mg tablet 500 mg PO Q6H PRN (Reason: muscle spasm) Qty: 14 RF: 0 No Action albuterol sulfate [Ventolin HFA] 90 mcg/actuation HFA aerosol inhaler 2 puff IH Q4H PRN (Reason: shortness of breath or wheezing) Qty: 8.5 RF: 0 escitalopram oxalate 20 mg tablet 20 mg PO DAILY Qty: 30 RF: 11 amitriptyline 25 mg tablet 25 mg PO HS Qty: 90 RF: 4 norethindrone acetate 5 mg tablet 5 mg PO BID Qty: 45 RF: 2 Discharge Instructions Instructions: Muscle Strain (ED) Additional Instructions: Alternate ice and heat to the affected area several times daily for 20 minutes at a time. Alternate tylenol and motrin as needed and directed for pain. Take the muscle relaxer as needed and directed for pain. You can purchase [id number] lidocaine patches to use as needed and directed. Follow-up with your primary care doctor in 1 week. Return to the emergency department with any worsening or new concerning symptoms. Discharge Data Discharge Date/Time-TO BE ENTERED AT DEPARTURE: 06/10/19 16:56 Discharge Physician: Fariha Mcmillan Medical Decision Making 34-year-old female presents with right-sided mid back pain with radiation to right lower ribs that started after she coughed earlier today. She states she has had a cough with nasal congestion for 2 weeks but states this is now resolving. She denies any recent fever. She states she has a good appetite. She states she coughed forcefully in the car earlier and felt a sudden onset of right-sided mid back pain. She also admits to pain under her right lower lateral ribs that is tender to palpation. She states she did have a bilateral anterior rib pain due to coughing recently but this is now resolving. Influenza obtained on arrival and negative. She appears nontoxic. Vitals within normal limits. She is texting on phone on arrival to room. Patient has significant tenderness to palpation of her right mid back without evidence of rash, infection or trauma. Lungs clear. Normal ENT exam. Appears consistent with thoracic myofascial strain. She had a Lidoderm patch placed and given a dose of Toradol and Valium and had significant relief of pain. She was sent home with a prescription for Robaxin and advised to purchase [id number]-ury-[id number] lidocaine patches and alternate Tylenol and Motrin for pain. Advised to follow up with the primary care doctor for re-evaluation. Usual and customary return precautions given prior to discharge. Medical Records Medical records reviewed: Yes I reviewed the patient's medical records. Lab Data Lab results reviewed: Yes I reviewed the patient's lab results. Labs: Influenza negative HPI General Date/Time Provider Initiated Documentation: 06/10/19 14:34. History of Present Illness 34 year old F presents to the emergency department with the chief complaint of Right mid back pain, Quality is described as aching and sharp, and is localized to the back. Patient reports radiation to (Right lower rib). Patient started experiencing this hour(s) (2) and it has been constant. Rest improves symptom(s), Movement worsens symptoms . Patient notes cough (Now resolving); denies chest pain, fever/chills, headaches, loss of appetite, malaise, nausea/vomiting, rash, seizure, shortness of breath, syncope and weakness. Patient did receive the following treatments prior to arrival, none Related Data Home Medications Medication Instructions Recorded Confirmed escitalopram oxalate 20 mg tablet 20 mg PO DAILY #30 tab 07/26/18 06/10/19 amitriptyline 25 mg tablet 25 mg PO HS #90 tab-cap 03/30/19 06/10/19 norethindrone acetate 5 mg tablet 5 mg PO BID #45 tab 04/09/19 06/10/19 albuterol sulfate 90 mcg/actuation 2 puff IH Q4H PRN #8.5 gm 04/30/19 06/10/19 aerosol inhaler methocarbamol 500 mg PO Q6H PRN #14 tab 06/10/19 Previous Rx's Medication Instructions Recorded escitalopram oxalate 20 mg tablet 20 mg PO DAILY #30 tab 07/26/18 amitriptyline 25 mg tablet 25 mg PO HS #90 tab-cap 03/30/19 norethindrone acetate 5 mg tablet 5 mg PO BID #45 tab 04/09/19 albuterol sulfate 90 mcg/actuation 2 puff IH Q4H PRN #8.5 gm 04/30/19 aerosol inhaler methocarbamol 500 mg PO Q6H PRN #14 tab 06/10/19 Allergies Allergy/AdvReac Type Severity Reaction Status Date / Time cefaclor Allergy Skin Rash Verified 05/10/19 08:47 General Stated Complaint: RespSymp IGNACIO: 3 Review of Systems All systems reviewed & are unremarkable except as noted in HPI and below Constitutional Constitutional: Reports as per HPI, Denies chills and Denies fever(s) Eyes Eyes: Denies blurry vision ENT Ears, Nose, Mouth, and Throat: Denies dizziness, Denies sore throat and Denies throat swelling Cardiovascular Cardiovascular: Denies chest pain and Denies dyspnea Respiratory Respiratory: Denies cough and Denies dyspnea Gastrointestinal Gastrointestinal: Denies abdominal pain, Denies diarrhea and Denies vomiting Genitourinary Genitourinary: Denies hematuria and Denies dysuria Musculoskeletal Musculoskeletal: Denies numbness Integumentary/Breasts Skin/Breast: Denies lesions and Denies rash Neurologic Neurologic: Denies dizziness, Denies focal weakness and Denies numbness Allergic/Immunologic Allergic/Immunologic: Denies throat swelling [facility] Medical History Anxiety (Chronic) Depression (Chronic) Insomnia (Acute) Morbid obesity (Inactive) Obstructive sleep apnea (Inactive 02/24/17) Surgical History Dilation and curettage (~2007) Ligation of fallopian tube (~2007) Tonsillectomy (~2000) Family History Mother Essential hypertension Hyperlipidemia Father Essential hypertension Hyperlipidemia Maternal Grandfather Essential hypertension Hyperlipidemia Stroke X2 Paternal Grandfather Heart disease Stroke Multiple sclerosis Hyperlipidemia Maternal Grandmother , 68 Diabetes Essential hypertension Heart disease Hyperlipidemia Breast cancer Stomach cancer Ovarian ca Bladder cancer Paternal Grandmother Essential hypertension Heart disease Hyperlipidemia Myocardial infarction Neoplasm OVARIAN Stroke Social History Smoking/Tobacco Use Status: Current every day Tobacco Type: cigarettes Smoking packs per day: 0.5 Smoking cigarettes per day: 10.0 Years smoked: 20 Smoking pack-years: 10.00 Quit status: considering quitting Second Hand Exposure: Yes Alcohol Intake: current Alcohol Intake frequency: holidays/special occasions only Alcohol type: beer Drug use: Never Substance use type: does not use Household members: children Housing: house Pets and animals: Yes Pets and animals: cat(s), dog(s) and other 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 Sexually active: No Do you think of yourself as: straight/heterosexual Current gender identity: female What is your relationship status?: How often do you talk on the phone with friends or family?: once per week How often do you get together with friends or relatives?: never Do you belong to any clubs or organized social groups?: no Panel score (0-1 are the most socially isolated patients): 0 What type of physical activity do you participate in: none Nanette/Mandaeism: Worship Seatbelt use: always Do you feel safe at home: Yes Do you feel safe in your relationship?: Yes Female Reproductive History Menstrual control method: progestin IUCD (MIRENA IUD INSERTED TODAY LOT#[id number] EXP JUN 2021. Pt has also had a BTL) Exam Const General: cooperative, healthy appearing and no acute distress HENMT Head: normal to inspection Face and sinus: normal facial exam Eyes General: appearance normal, both eyes and all related structures Pupils: PERRL EOM: EOM intact bilaterally Neck Neck: normal visual inspection and No submandibular swelling Lymphatic: no lymphadenopathy noted Chest Chest: normal inspection of the chest Chest/axillae images: 1. Tender to palpation right lower lateral ribs. No evidence of rash, infection or trauma. No crepitus or step-off. Resp Effort & Inspection: normal respiratory effort and able to speak in complete sentences Auscultation: clear to auscultation bilaterally Cardio Rate: regular rate Rhythm: regular rhythm GI Inspection: normal to inspection Palpation: soft, not firm, not rigid and nontender Auscultation: normal bowel sounds Back/Spine/Pelvis Thoracic/Lumbar Spine: thoracic and lumbar spine normal to inspection Pelvis: no pain with anterior-posterior compression Back/spine/pelvis image: 1. Localized area of tenderness to palpation right mid back. There is no midline T-spine tenderness. No rash, erythema, ecchymosis, step-off or crepitus. Skin General skin exam: no rashes or lesions noted Neuro General: alert, awake and oriented x3 Cognition: normal cognition Speech: speech normal Motor: muscle tone normal throughout Sensory Exam: no sensory deficits noted Extrem General: normal to inspection, full ROM, normal capillary refill, no calf tenderness bilaterally and no edema Psych Appearance: grossly normal Mental Status: mental status grossly normal Speech and Movement: speech and movement normal Affect: normal affect Course Vital Signs Vital signs: Vital Signs Temperature 98.8 F 06/10/19 14:20 Pulse 75 06/10/19 14:20 Respiratory Rate 18 06/10/19 14:20 Blood Pressure 137/92 H 06/10/19 14:20 Pulse Oximetry 96 06/10/19 14:20 Temperature 98.8 F 06/10/19 14:20 Temperature Source Skin 06/10/19 14:20 Pulse 75 06/10/19 14:20 Respiratory Rate 18 06/10/19 14:20 Respiratory Effort Non-Labored 06/10/19 14:32 Respiratory Depth Normal 06/10/19 14:32 Blood Pressure 137/92 H 06/10/19 14:20 Blood Pressure Position Sitting 06/10/19 14:20 Pulse Oximetry 96 06/10/19 14:20 Oxygen Delivery Method Room Air 06/10/19 14:20 Oxygen Flow Rate 0 06/10/19 14:20 Pain Level 5 06/10/19 14:20 Lab/Test Results Lab/Test Results: 06/10/19 14:30 Nasopharynx Influenza Types A,B Antigen - Final
[2019-06-10] MEDS: Lidocaine 5% Patch 1 PATCH TP (16:23)
[2019-06-10] MEDS: Ketorolac 60 MG/2 ML VIAL IM (16:26)
[2019-06-10] MEDS: diazePAM 5 MG TAB PO (16:29)
== END 2019-06-10 16:56 | disposition home or self-care (01) ==
PROVIDERS: Emergency Provider Physician Assistant
DX: S29.012A Strain of muscle and tendon of back wall of thorax, initial encounter (principal); X50.9XXA Other and unspecified overexertion or strenuous movements or postures, initial encounter; F17.210 Nicotine dependence, cigarettes, uncomplicated
CPT/HCPCS: 87449; 96372; 99284; 99283; J1885

== ENCOUNTER 2019-11-01 02:40 | Outpatient (CLI) | payer BC, SELFPAY ==
--- NOTE | 2019-11-01 08:00 | DI.US_ITS ---
EXAM: US ABDOMEN CLINICAL HISTORY: RUQ PAIN,R10.9 TECHNIQUE: Ultrasound performed using standard protocol. COMPARISON: No exams were available for comparison FINDINGS: The exam is somewhat limited by patient body habitus. The liver is enlarged, measuring 22.7 cm in length. There is slightly increased echogenicity, consistent with fatty infiltration. No gross foca l liver lesions are seen. Several stones are noted in the gallbladder which are mobile. The largest measures 2 cm. There is a 1.5 centimeter stone which appears lodged in the neck of the gallbladder . The gallbladder is mildly distended. Gallbladder wall thickening is noted, up to 6 millimeters. There is a trace amount of pericholecystic fluid. The patient was tender while scanning over the gal lbladder.. There is no biliary dilatation. The spleen, kidneys, pancreas and aorta are unremarkable . IMPRESSION: Cholelithiasis. 1.5 centimeter stone appears stuck in the gallbladder neck. There is gallbladder wall thickening as well as positive sonographic Bertrand sign. DATA REPOSITORY:
[2019-11-01 10:25] LABS: Abs Immature Grans 0.06 k/cumm (0.0-0.09); Absolute Basophil Count 0.04 k/cumm (0.0-0.2); Absolute Eosinophil Count 0.43 k/cumm (0.0-0.7); Absolute Monocyte Count 1.47 k/cumm (0.11-0.7); Basophils % 0.3; Eosinophils % 2.9; HCT 35.7 % (36.0-46.0); HGB 11.2 g/dL (12.0-15.5); Immature Grans % 0.4 %; Lymphocytes % 14.5; Mean Corp. HGB Concentration 31.4 g/dL (32.0-36.0); Mean Corpuscular Hemoglobin 26.9 pg (27.0-33.0); Mean Corpuscular Volume 85.8 fL (80-95); Mean Platelet Volume 9.7 fL (8.0-11.0); Neutrophils % 71.9; Platelet Count 417 x1000/uL (130-400); RBC 4.16 m/cumm (4.00-5.20); RBC Distribution Width 15.8 % (11.7-14.6); White Blood Cell Count 14.73 k/cumm (4.4-10.8)
[2019-11-01 10:27] LABS: Absolute Lymphocyte Count 2.14 k/cumm (1.2-3.4); Absolute Neutrophil Count 10.59 k/cumm (1.2-6.7)
[2019-11-01 12:14] LABS: ALT 25 U/L (14-59); AST 16 U/L (15-37); Albumin 2.6 g/dL (3.4-5.0); Alkaline Phosphatase 117 U/L (46-116); Anion Gap 4.9 mmol/L (3-11); BUN 7 mg/dL (7-18); Bilirubin, Total 0.6 mg/dL (0.2-1.0); CO2 28.1 mmol/L (21.0-32.0); CREATININE 1.14 mg/dL (0.55-1.02); Calcium 8.2 mg/dL (8.5-10.1); Chloride 99 mmol/L (98-107); Estimated GFR 53.93 (mL/min/1.73m2); Glucose 130 mg/dL (74-106); Lipase 62 U/L (73-393); Sodium 132 mmol/L (136-145); Total Protein 6.5 g/dL (6.4-8.2)
== END 2019-11-01 03:00 ==
PROVIDERS: Visit Provider Family Medicine
DX: R10.11 Right upper quadrant pain (principal); K80.20 Calculus of gallbladder without cholecystitis without obstruction; D64.9 Anemia, unspecified
CPT/HCPCS: 36415; 80053; 83690; 76700; 85025

== ENCOUNTER 2021-02-03 15:53 | Outpatient (REF) | payer BC, SELFPAY ==
--- NOTE | 2021-02-03 14:00 | PAPFT_PTH ---
PATIENT: Clarita Sherman LOC: [facility] U#:[id number] AGE/SX: 35/F ROOM: RE02/03/[address]: Laurence Wallace APRN : 1985 BED: DIS: 02/03/2021 SPEC #: [id number] RECD: 02/03/21 17:47 STATUS: HYACINTH REuCrtis #: [id number] SHASHA: 02/03/21 14:[address]: Laurence Wallace DEPT: [facility] Cytology RECD BY: Geno Goldman Tissues: 1 - CX/ENDOCX FOR PAP SMEARS Procedures: PAP THIN PREP/UVM Screening HPV DNA PROBE Comments: [id number]
== END 2021-02-03 15:54 | disposition home or self-care (01) ==
LOC: LBN 15:53
DX: Z12.4 Encounter for screening for malignant neoplasm of cervix (principal)
CPT/HCPCS: 88142; 87624

== ENCOUNTER 2021-02-06 03:16 | Outpatient (CLI) | payer BC, SELFPAY ==
[2021-02-06 07:56] LABS: HCT 44.2 % (36.0-46.0); HGB 14.1 g/dL (11.2-15.7); MCH 29.3 pg (27.0-33.0); MCHC 31.9 % (32.0-36.0); MCV 91.7 fL (80-95); MPV 10.1 fL (8.0-11.0); Platelet Count 259 10^3/uL (130-400); RBC 4.82 10^6/uL (3.93-5.22); RDW 14.6 % (11.7-14.6); RDW-SD 49.8 fL; WBC 11.87 10^3/uL (4.4-10.8)
[2021-02-06 09:14] LABS: ALT 30 U/L (14-59); AST 12 U/L (15-37); Albumin 3.2 g/dL (3.4-5.0); Alkaline Phosphatase 89 U/L (46-116); Anion Gap 8.3 mmol/L (3-11); BUN 11 mg/dL (7-18); Bilirubin, Total 0.3 mg/dL (0.2-1.0); CO2 28.7 mmol/L (21.0-32.0); CREATININE 1.1 mg/dL (0.55-1.02); Calcium 8.4 mg/dL (8.5-10.1); Calculated LDL 86 mg/dL (<100); Chloride 104 mmol/L (98-107); Cholesterol 143 mg/dL (<200); Estimated GFR 55.89 (mL/min/1.73m2); Glucose 110 mg/dL (74-106); HDL Cholesterol 30 mg/dL (40-60); Potassium 4.5 mmol/L (3.5-5.1); Sodium 141 mmol/L (136-145); Total Protein 6.5 g/dL (6.4-8.2); Triglyceride 136 mg/dL (<150)
== END 2021-02-06 03:17 | disposition home or self-care (01) ==
LOC: LBO 03:16
DX: Z00.00 Encounter for general adult medical examination without abnormal findings (principal); Z13.220 Encounter for screening for lipoid disorders; D50.9 Iron deficiency anemia, unspecified
CPT/HCPCS: 36415; 80053; 80061; 85027

== ENCOUNTER 2021-03-15 13:19 | Emergency (ER) | payer BC, SELFPAY ==
[2021-03-15 13:26] VITALS: BP 151/100; PULSE 99; RESP 17; TEMP 36.5; O2SAT 100
--- NOTE | 2021-03-15 13:31 | W.ED.GENAD ---
Discharge Plan Disposition Patient Disposition: HOME Condition: Good Discharge Details Clinical Impression: Laceration of abdominal wall Primary Care Provider: Laurence Wallace ED Provider: Leta Panda Home Meds and New Rx's Prescriptions: New doxycycline hyclate 100 mg tablet 100 mg PO BID 5 Days Qty: 10 RF: 0 Continued melatonin 3 mg capsule 3 mg PO HS PRNRF: 0 levonorgestrel 20 mcg/24 hours (5 yrs) 52 mg intrauterine device 1 device intrauterine ONCE RF: 0 amitriptyline 25 mg tablet 25 mg PO HS Qty: 90 RF: 4 Discharge Instructions Instructions: Laceration (ED) Additional Instructions: Please keep wound clean, dry, covered. Tylenol and ibuprofen as needed for discomfort. Please take the antibiotics as prescribed to help prevent any type of infection. Please return in 12 to 14 days for suture removal. If you notice any redness, warmth, drainage, increased pain or other new/worsening symptoms to seek care urgently once again. Referrals: Laurence Wallace, COP[employer] CENTER OPERATOR [Primary Care Provider] - Medical Decision Making Patient is a pleasant 35-year-old female presenting today with chief complaint of laceration to her abdomen. She reports a prior to arrival she was working on cleaning an old shed. States that she picked up a bag full of old metal and a piece of this metal came up her abdomen as it stuck out the trash bag. Denies other injuries from the incident. States that tetanus is up-to-date. She denies the piece of metal going deep into the skin, feels more superficial as it was more the edge of it that cut her moving upwards. Patient is not anticoagulated. Patient does not have diabetes. On exam, patient appears nontoxic. Patient is obese. She has a 5 cm irregularly-shaped laceration into subcutaneous tissue. Deep structures appear intact. I am not able to probe deeper down to the wound at all. Appears superficial. Patient I discussed her/benefits as well as expected procedural steps associate with suture closure. She was understanding and wishes to proceed. Please see procedure note. Wound is explored in bloodless field no foreign body or debris noted. Patient tolerated this well. Bacitracin and sterile dressing was applied. With the mechanism of laceration as well as it is obesity, I am concerned she is at increased risk for potential infection and plan to treat with Keflex. We discussed wound care in depth. Return precautions were addressed, in particular signs of infection. Advised to return to receive suture removal. All questions and concerns were addressed and she is agreement with plan. HPI General Mode of arrival: ambulatory. Date/Time Provider Initiated Documentation: 03/15/21 13:30. Limitations to Documentation: no limitations. Information obtained by: patient and RN notes reviewed. History of Present Illness 35 year old F presents to the emergency department with the chief complaint of abdominal laceration, described as moderate, Quality is described as aching, and is localized to the abdomen. Patient reports no radiation. Patient started experiencing this minute(s) and it has been constant. No relieving factors improve symptom(s), No exacerbating factors reported . Patient notes no other symptoms.. Patient did receive the following treatments prior to arrival, none Related Data Home Medications Medication Instructions Recorded Confirmed levonorgestrel 20 mcg/24 hours (6 1 device INTRAUTERINE ONCE 02/14/20 03/15/21 yrs) 52 mg intrauterine device amitriptyline 25 mg tablet 25 mg PO HS #90 tab-cap 04/11/20 03/15/21 melatonin 3 mg capsule 3 mg PO HS PRN 02/03/21 03/15/21 doxycycline hyclate 100 mg PO BID 5 Days #10 tab 03/15/21 Previous Rx's Medication Instructions Recorded amitriptyline 25 mg tablet 25 mg PO HS #90 tab-cap 04/11/20 doxycycline hyclate 100 mg PO BID 5 Days #10 tab 03/15/21 Allergies Allergy/AdvReac Type Severity Reaction Status Date / Time cefaclor Allergy Skin Rash Verified 03/15/21 13:29 General Stated Complaint: Laceration IGNACIO: 3 Review of Systems Constitutional Constitutional: Reports as per HPI, Denies chills and Denies fever(s) Musculoskeletal Musculoskeletal: Reports as per HPI Integumentary/Breasts Skin/Breast: Reports as per HPI Neurologic Neurologic: Reports as per HPI, Denies sensory deficit and Denies paresthesias [facility] Medical History (Updated 03/15/21 @ 14:10 by DAYSI Reynoso) Abdominal pain Alcohol intake above recommended sensible limits Anxiety Cholelithiasis + by U/S 10/2019 Cholecystectomy [facility] 11/2020 Depression Insomnia Morbid obesity Obstructive sleep apnea (02/24/17) not treating Steatosis of liver Per liver biopsy/visualization at [facility] 12/2019 Surgical History Dilation and curettage (~2007) Ligation of fallopian tube (~2007) Tonsillectomy (~2000) Family History (Updated 02/05/21 @ 13:00 by Trisha Cano) Mother Essential hypertension Hyperlipidemia Depression Father , 60 Essential hypertension Hyperlipidemia Maternal Grandfather Essential hypertension Hyperlipidemia Stroke X2 Diabetes Heart disease Paternal Grandfather , 70 Heart disease Stroke Multiple sclerosis Hyperlipidemia Cancer Maternal Grandmother , 68 Diabetes Essential hypertension Heart disease Hyperlipidemia Breast cancer Stomach cancer Ovarian ca Bladder cancer Paternal Grandmother Essential hypertension Heart disease Hyperlipidemia Myocardial infarction Neoplasm OVARIAN Stroke Social History (Updated 02/05/21 @ 13:00 by Trisha Cano) Smoking/Tobacco Use Status: Current every day Tobacco Type: cigarettes Smoking packs per day: 0.5 Smoking cigarettes per day: 10.0 Years smoked: 20 Smoking pack-years: 10.00 Tobacco: How many years used: 25 Quit status: considering quitting Second Hand Exposure: Yes Smoking risk assessment performed?: Yes Alcohol Intake: current Alcohol Intake frequency: holidays/special occasions only Alcohol type: beer Drug use: Never Substance use type: does not use Counseling given: No Counseling provided: none Caregiver/Support person: No Household members: spouse and children Housing: house Communication Needs: None Pets and animals: Yes Pets and animals: cat(s), dog(s) and other 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 Sexually active: Yes Do you think of yourself as: lesbian/hutton/homosexual Current gender identity: female What is your relationship status?: How often do you talk on the phone with friends or family?: once per week How often do you get together with friends or relatives?: once per week How often do you attend protestant or tenriism services?: decline to answer Do you belong to any clubs or organized social groups?: no Panel score (0-1 are the most socially isolated patients): 1 What type of physical activity do you participate in: walking Duration: 30-45 minutes/day Frequency: daily Nanette/Jain: No preference Special nanette needs: No Seatbelt use: always Helmet use: Yes Helmet use: always Drive intox or ride w/intox 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 Pt has also had a BTL) Exam Const General: cooperative, healthy appearing, comfortable, no acute distress and well developed Nutritional Appearance: well nourished and obese Orientation: alert and awake Resp Effort & Inspection: normal respiratory effort, able to speak in complete sentences and no respiratory distress Cardio Rate: regular rate Rhythm: regular rhythm GI Inspection: obesity Palpation: soft, not firm, no guarding, not rigid and tender (at incision point, no deep palpation tenderness) Percussion: normal to percussion Abdomen image: 1. ARea of laceration. SubQ tissue is visualized. No active bleeding. No surrounding erythema. warmth, drainage. No deep structures are able to be visualized. Wound probed with solid end point and no tracking of the wound. Skin Trauma: laceration Neuro General: patient alert and patient awake Cognition: normal cognition Speech: speech normal Gait: normal gait Sensory Exam: no sensory deficits noted Psych Appearance: grossly normal and well kempt Mental Status: mental status grossly normal Speech and Movement: speech and movement normal Course Vital Signs Vital signs: Vital Signs Temperature 36.5 C 03/15/21 13:26 Pulse 99 H 03/15/21 13:26 Respiratory Rate 17 03/15/21 13:26 Blood Pressure 151/100 H 03/15/21 13:26 Pulse Oximetry 100 03/15/21 13:26 Temperature 36.5 C 03/15/21 13:26 Temperature Source Temporal Artery Scan 03/15/21 13:26 Pulse 99 H 03/15/21 13:26 Respiratory Rate 17 03/15/21 13:26 Blood Pressure 151/100 H 03/15/21 13:26 Blood Pressure Position Sitting 03/15/21 13:26 Pulse Oximetry 100 03/15/21 13:26 Oxygen Delivery Method Room Air 03/15/21 13:26 Oxygen Flow Rate 0 03/15/21 13:26 Procedures Laceration Laceration 1: Site: other (abdomen) Side (If applicable): right Size (cm): 5 Description: irregular Depth: simple, single layer Local Anesthetic: Lidocaine 1% and with Epi Amount of anesthesia used (mL): 7 Pre-repair: wound explored, irrigated extensively and deep structures intact Skin layer closed with: nylon Size (cm): 5-0 Number of sutures: 8 Technique: simple, interrupted
[2021-03-15 14:20] VITALS: BP 144/87; PULSE 99; RESP 17; TEMP 36.6; O2SAT 97
== END 2021-03-15 14:20 | disposition home or self-care (01) ==
PROVIDERS: Emergency Provider Physician Assistant
DX: S36.33XA Laceration of stomach, initial encounter (principal); W26.8XXA Contact with other sharp object(s), not elsewhere classified, initial encounter
CPT/HCPCS: 12002

== ENCOUNTER 2021-03-29 08:23 | Emergency (ER) | payer BC, SELFPAY ==
[2021-03-29 08:29] VITALS: BP 147/92; PULSE 80; TEMP 36.8; O2SAT 99
--- NOTE | 2021-03-29 08:45 | W.ED.GENAD ---
Discharge Plan Disposition Patient Disposition: HOME Condition: Good Discharge Details Clinical Impression: Visit for suture removal Primary Care Provider: Laurence Wallace ED Provider: Leta Panda Home Meds and New Rx's Prescriptions: Continued melatonin 3 mg capsule 3 mg PO HS PRNRF: 0 levonorgestrel 20 mcg/24 hours (5 yrs) 52 mg intrauterine device 1 device intrauterine ONCE RF: 0 amitriptyline 25 mg tablet 25 mg PO HS Qty: 90 RF: 4 Discharge Instructions Instructions: Stitches Removal (ED) Additional Instructions: Wound appears to be healing well. Sutures removed today. Please continue to monitor for signs infection including redness, warmth, drainage, increased pain, fever/chills. Develop these other new/worsening symptoms please seek care urgently once again. You may use vitamin E oil to help with wound healing and reduce scarring. Please try to keep out of the sun to prevent increased scarring as well. Referrals: Laurence Wallace, STEREO EQUIPMENT INSTALLER [Primary Care Provider] - Medical Decision Making Patient is a pleasant 35-year-old female presenting today with chief complaint of suture removal. Wound appears to be healing well no evidence of infection. Skin healing well, appropriate for sutures to be removed. #8 sutures were easily removed by myself. Patient tolerated well. We discussed continued wound care. All questions of cancer addressed and she is agreement this plan. HPI General Mode of arrival: ambulatory. Date/Time Provider Initiated Documentation: 03/29/21 08:45. Limitations to Documentation: no limitations. Information obtained by: patient and RN notes reviewed. HPI Narrative: Patient is a pleasant 35-year-old female presenting today with chief complaint of removal. Was seen here 2 weeks ago at which time sutures discussed her abdomen. She denies any pain. She has been healing well. Denies any fevers or chills. Related Data Home Medications Medication Instructions Recorded Confirmed levonorgestrel 20 mcg/24 hours (7 1 device INTRAUTERINE ONCE 02/14/20 03/29/21 yrs) 52 mg intrauterine device amitriptyline 25 mg tablet 25 mg PO HS #90 tab-cap 04/11/20 03/29/21 melatonin 3 mg capsule 3 mg PO HS PRN 02/03/21 03/29/21 Previous Rx's Medication Instructions Recorded amitriptyline 25 mg tablet 25 mg PO HS #90 tab-cap 04/11/20 Allergies Allergy/AdvReac Type Severity Reaction Status Date / Time cefaclor Allergy Skin Rash Verified 03/29/21 08:33 General Stated Complaint: SutureRem IGNACIO: 5 Review of Systems Constitutional Constitutional: Reports as per HPI, Denies chills and Denies fever(s) Musculoskeletal Musculoskeletal: Reports as per HPI and Denies tingling Integumentary/Breasts Skin/Breast: Reports as per HPI Neurologic Neurologic: Denies sensory deficit and Denies tingling [facility] Medical History (Updated 03/29/21 @ 08:53 by DAYSI Reynoso) Abdominal pain Alcohol intake above recommended sensible limits Anxiety Cholelithiasis + by U/[facility] 10/2019 [place]olecyst[place] [facility] [place] Depression Insomnia Morbid obesity Obstructive sleep apnea (02/24/17) not treating Steatosis of liver Per liver biopsy/visualization [place] [facility] [place] Surgical History Dilation and curettage (~2007) Ligation of fallopian tube (~2007) Tonsillectomy (~2000) Family History (Updated 02/05/21 @ 13:00 by Trisha Cano) Mother Essential hypertension Hyperlipidemia Depression Father , 60 Essential hypertension Hyperlipidemia Maternal Grandfather Essential hypertension Hyperlipidemia Stroke X2 Diabetes Heart disease Paternal Grandfather , 70 Heart disease Stroke Multiple sclerosis Hyperlipidemia Cancer Maternal Grandmother , 68 Diabetes Essential hypertension Heart disease Hyperlipidemia Breast cancer Stomach cancer Ovarian ca Bladder cancer Paternal Grandmother Essential hypertension Heart disease Hyperlipidemia Myocardial infarction Neoplasm OVARIAN Stroke Social History (Updated 02/05/21 @ 13:00 by Trisha Cano) Smoking/Tobacco Use Status: Current every day Tobacco Type: cigarettes Smoking packs per day: 0.5 Smoking cigarettes per day: 10.0 Years smoked: 20 Smoking pack-years: 10.00 Tobacco: How many years used: 25 Quit status: considering quitting Second Hand Exposure: Yes Smoking risk assessment performed?: Yes Alcohol Intake: current Alcohol Intake frequency: holidays/special occasions only Alcohol type: beer Drug use: Never Substance use type: does not use Counseling given: No Counseling provided: none Caregiver/Support person: No Household members: spouse and children Housing: house Communication Needs: None Pets and animals: Yes Pets and animals: cat(s), dog(s) and other 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 Sexually active: Yes Do you think of yourself as: lesbian/hutton/homosexual Current gender identity: female What is your relationship status?: How often do you talk on the phone with friends or family?: once per week How often do you get together with friends or relatives?: once per week How often do you attend pentecostalism or worship services?: decline to answer Do you belong to any clubs or organized social groups?: no Panel score (0-1 are the most socially isolated patients): 1 What type of physical activity do you participate in: walking Duration: 30-45 minutes/day Frequency: daily Nanette/Anabaptism: No preference Special nanette needs: No Seatbelt use: always Helmet use: Yes Helmet use: always Drive intox or ride w/intox line 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 Pt has also had a BTL) Exam Const General: cooperative, healthy appearing, comfortable, no acute distress and well developed Nutritional Appearance: well nourished and overweight Orientation: alert and awake Resp Effort & Inspection: normal respiratory effort, able to speak in complete sentences and no respiratory distress Cardio Rate: regular rate Rhythm: regular rhythm GI Abdomen image: 1. area of laceration, healing well Skin Trauma: laceration (healing well with no evidence of infection) Neuro General: patient alert and patient awake Cognition: normal cognition Speech: speech normal Gait: normal gait Motor: muscle tone normal throughout Psych Appearance: grossly normal and well kempt Mental Status: mental status grossly normal Speech and Movement: speech and movement normal Course Vital Signs Vital signs: Vital Signs Temperature 36.8 C 03/29/21 08:29 Pulse 80 03/29/21 08:29 Blood Pressure 147/92 H 03/29/21 08:29 Pulse Oximetry 99 03/29/21 08:29 Temperature 36.8 C 03/29/21 08:29 Temperature Source Temporal Artery Scan 03/29/21 08:29 Pulse 80 03/29/21 08:29 Respiratory Effort Non-Labored 03/29/21 08:31 Blood Pressure 147/92 H 03/29/21 08:29 Blood Pressure Position Sitting 03/29/21 08:29 Pulse Oximetry 99 03/29/21 08:29 Oxygen Delivery Method Room Air 03/29/21 08:29 Oxygen Flow Rate 0 03/29/21 08:29 Pain Level 0 03/29/21 08:29
== END 2021-03-29 09:07 | disposition home or self-care (01) ==
PROVIDERS: Emergency Provider Physician Assistant
DX: S36.3 Injury of stomach (principal); W26.8XXD Contact with other sharp object(s), not elsewhere classified, subsequent encounter; Z48.02 Encounter for removal of sutures

== ENCOUNTER 2021-07-17 12:56 | Outpatient (REF) | payer BC, SELFPAY ==
[2021-07-18 11:51] LABS: COVID-19 RT-PCR UVMMC Result Negative (Negative)
== END 2021-07-17 12:57 | disposition home or self-care (01) ==
LOC: LBN 12:56
PROVIDERS: Visit Provider Family Medicine
DX: Z20.822 Contact with and (suspected) exposure to COVID-19 (principal); R05.8 Other specified cough
CPT/HCPCS: U0003

== ENCOUNTER → 2021-08-24 16:52 | Outpatient (CLI) | payer BC, SELFPAY ==
--- NOTE | 2021-08-24 15:14 | DI.RAD_ITS ---
Exam(s) XR CHEST 2V PA LATERAL EXAM: XR CHEST 2V PA LATERAL CLINICAL HISTORY: recurrent whezze, r/o pnueomoina, bronchitis with bronchospasm, J20.9. TECHNIQUE: 2D digital imaging was performed. COMPARISON: Prior chest x-ray April 2018 FINDINGS: 2 views: Heart size is upper normal. The mediastinum is not widened. Lungs are clear. No infiltrates nor pleural effusions. IMPRESSION: No acute pulmonary findings. DATA REPOSITORY: RADIATION DOSE DELIVERED:
== END ==
PROVIDERS: Visit Provider Family Medicine
DX: J20.9 Acute bronchitis, unspecified (principal); R06.2 Wheezing
CPT/HCPCS: 71046

== ENCOUNTER 2022-10-19 12:50 | Outpatient (REF) | payer OTHER, SELFPAY ==
[2022-10-19 13:30] LABS: ALT 42 U/L (14-59); AST 23 U/L (15-37); Albumin 3.7 g/dL (3.4-5.0); Alkaline Phosphatase 95 U/L (46-116); Anion Gap 4.9 mmol/L (3-11); BUN 8 mg/dL (7-18); Bilirubin, Total 0.4 mg/dL (0.2-1.0); CO2 29.1 mmol/L (21.0-32.0); CREATININE 1.1 mg/dL (0.55-1.02); Calcium 9.2 mg/dL (8.5-10.1); Chloride 103 mmol/L (98-107); Estimated GFR 65.55 (mL/min/1.73m2); Glucose 109 mg/dL (74-106); Potassium 4.5 mmol/L (3.5-5.1); Sodium 137 mmol/L (136-145); Total Protein 7.2 g/dL (6.4-8.2)
[2022-10-19 14:22] LABS: COMMENT (LAB VIEW ONLY) < 13.00 mg/dL
== END 2022-10-19 12:51 | disposition home or self-care (01) ==
LOC: LBN 12:50
PROVIDERS: PCP Nurse Practitioner Family; Visit Provider Nurse Practitioner Family
DX: Z00.00 Encounter for general adult medical examination without abnormal findings (principal); I10 Essential (primary) hypertension
CPT/HCPCS: 80053; 82043; 82570

== ENCOUNTER 2022-11-02 13:42 | Outpatient (REF) | payer OTHER, SELFPAY ==
[2022-11-02 14:27] LABS: Anion Gap 6.1 mmol/L (3-11); BUN 6 mg/dL (7-18); CO2 29.9 mmol/L (21.0-32.0); Calcium 9.3 mg/dL (8.5-10.1); Chloride 102 mmol/L (98-107); Estimated GFR 73.49 (mL/min/1.73m2); Glucose 101 mg/dL (74-106); Sodium 138 mmol/L (136-145)
[2022-11-02 16:24] LABS: COMMENT (LAB VIEW ONLY) 13.04 mg/dL; Microalb ug/mg Crea 10.7 ug/mg Cr
== END 2022-11-02 13:43 | disposition home or self-care (01) ==
LOC: LBN 13:42
PROVIDERS: PCP Nurse Practitioner Family; Visit Provider Family Medicine
DX: I10 Essential (primary) hypertension (principal); E11.9 Type 2 diabetes mellitus without complications
CPT/HCPCS: 80048; 82043; 82570

== ENCOUNTER 2023-01-04 11:07 | Outpatient (CLI) | payer OTHER, SELFPAY ==
--- NOTE | 2023-01-04 10:30 | DI.RAD_ITS ---
Exam(s) XR KNEE RT 3V AP,LAT,MARQUEZ EXAM: XR KNEE RT 3V AP,LAT,MARQUEZ CLINICAL HISTORY: 2 months right medial knee pain, M25.561. TECHNIQUE: 2D digital imaging was performed. Three views. COMPARISON: No exams were available for comparison FINDINGS: BONES: No acute fracture is present. No bony destructive lesion is seen. There is a bipartite patella with a E accessory patella seen laterally. JOINTS: The knee is normally aligned. No joint effusion is seen. Joint spaces are maintained. SOFT TISSUE: Normal. IMPRESSION: Bipartite patella. DATA REPOSITORY: RADIATION DOSE DELIVERED:
== END 2023-01-04 11:27 ==
LOC: DI 11:10
PROVIDERS: PCP Nurse Practitioner Family; Visit Provider Nurse Practitioner Family
DX: M25.561 Pain in right knee (principal); M22.8X1 Other disorders of patella, right knee
CPT/HCPCS: 73562

== ENCOUNTER → 2023-02-25 01:12 | Outpatient (CLI) | payer OTHER, SELFPAY ==
--- NOTE | 2023-02-25 08:30 | DI.MAMMO_ITS ---
Exam(s) MAMMO SCREENING EXAM: MAMMO SCREENING CLINICAL HISTORY: screening,Z12.39 TECHNIQUE: Mammograms were interpreted according to the usual protocol including computer analysis w [employer] CAD system, tomosynthesis and C-view imaging. COMPARISON: No exams were available for comparison baseline examination. FINDINGS: The breasts are composed of scattered fibroglandular densities, Breast Density category B. No suspicious masses or suspicious microcalcifications are seen. No skin thickening or abnormal axillary lymph nodes are seen. There has been no significant change from prior exams. IMPRESSION: BI-RADS Category 1, Negative mammogram Yearly screening mammography is recommended. Breast Density - Category B, scattered fibroglandular densities. A negative radiographic report should not delay biopsy if a dominant or clinically suspicious mass is present. Up to ten percent of cancers are not identified on mammography. A negative report may reinforce clinical impression. Adenosis and dense breasts may obscure an underlying neoplasm. False positive reports average 6 to 10%. Patient will receive a letter notifying them of these results.
== END ==
PROVIDERS: PCP Nurse Practitioner Family; Visit Provider Nurse Practitioner Family
DX: Z12.31 Encounter for screening mammogram for malignant neoplasm of breast (principal)
CPT/HCPCS: 77063; 77067

== ENCOUNTER → 2023-04-27 01:54 | Outpatient (CLI) | payer OTHER, SELFPAY ==
--- NOTE | 2023-04-27 07:00 | DI.MRI_ITS ---
Exam(s) MR LOWER JOINT RT WO EXAM: MR LOWER JOINT RT WO CLINICAL HISTORY: R KNEE PAIN,? MED MENISCAL TEAR,internal derangement rt knee, m23.91. TECHNIQUE: Multiplanar multisequence MRI was performed. COMPARISON: CR XR KNEE RT 3V AP,LAT,MARQUEZ from 01/04/2023 FINDINGS: BONES: There is no fracture or contusion pattern. Bipartite patella seen on the right. JOINTS: A small joint effusion is present. Articular cartilage: Patellofemoral joint: Focal linear defect at the apex of the patella. Medial femoral tibial joint: Focal defect with underlying the area of high signal in the anterior, l ateral aspect of the medial femoral condyle. Lateral femoral tibial joint: Articular cartilage is unremarkable. TENDONS: Extensor mechanism: Unremarkable. Medial retinaculum: Unremarkable. Lateral retinaculum: Unremarkable. Popliteus: Unremarkable. Small amount of fluid/small synovial cysts a proximal muscle. MUSCLES: Unremarkable. MENISCI: The medial meniscus is unremarkable. The lateral meniscus is unremarkable. SOFT TISSUES: Mild anterior subcutaneous edema. LIGAMENTS: Anterior Cruciate: Unremarkable. Posterior Cruciate: Unremarkable. Medial Collateral:Intact. Fluid seen deep to the ligament, consistent with bursitis. The pes anseri ne tendons appear intact. Lateral Collateral: Unremarkable. IMPRESSION: findings consistent with medial bursitis. No evidence of ligament tear or meniscal tear. Focal cartilage defect at the patellar apex which is not extend down to bone. Focal cartilage defect anterior aspect of medial femoral condyle involving underlying bone. DATA REPOSITORY:
== END ==
PROVIDERS: PCP Nurse Practitioner Family; Visit Provider Student in an Organized Health Care Education/Training Program
DX: M70.51 Other bursitis of knee, right knee (principal)
CPT/HCPCS: 73721

== ENCOUNTER 2023-08-19 15:47 | Outpatient (REF) | payer OTHER, SELFPAY ==
--- NOTE | 2023-08-19 14:10 | PAPFT_PTH ---
PATIENT: Clarita Sherman LOC: [facility] U#:[id number] AGE/SX: 38/F ROOM: RE08/19/[address]: Jean-Paul Kamara DNP : 1985 BED: DIS: 08/19/2023 SPEC #: [id number] RECD: 08/22/23 13:00 STATUS: HYACINTH RECurtis #: [id number] SHASHA: 08/19/23 14:[address]: Jean-Paul Pugh DEPT: [facility] Cytology RECD BY: Geno Goldman Tissues: 1 - CX/ENDOCX FOR PAP SMEARS Procedures: PAP THIN PREP/UVM Screening HPV DNA PROBE Comments: [id number]
== END 2023-08-19 15:48 | disposition home or self-care (01) ==
LOC: LBN 15:47
PROVIDERS: PCP Nurse Practitioner Family; Referring Provider Nurse Practitioner Family; Visit Provider Nurse Practitioner Family
DX: Z12.4 Encounter for screening for malignant neoplasm of cervix (principal); Z11.51 Encounter for screening for human papillomavirus (HPV)
CPT/HCPCS: 88142; 87624

== ENCOUNTER 2025-02-27 14:19 | Outpatient (CLI) | payer OTHER, SELFPAY ==
[2025-02-27 16:59] LABS: ALT 20 U/L (14-59); AST 18 U/L (15-37); Albumin 3.6 g/dL (3.4-5.0); Alkaline Phosphatase 66 U/L (46-116); Anion Gap 7.8 mmol/L (3-11); BUN 13 mg/dL (7-18); Bilirubin, Total 0.4 mg/dL (0.2-1.0); CO2 28.2 mmol/L (21.0-32.0); Calcium 9.6 mg/dL (8.5-10.1); Calculated LDL 98 mg/dL (<100); Chloride 104 mmol/L (98-107); Cholesterol 159 mg/dL (<200); Estimated GFR 82.37 (mL/min/1.73m2); Glucose 115 mg/dL (74-106); HDL Cholesterol 47 mg/dL (>or=50); Potassium 4.1 mmol/L (3.5-5.1); Sodium 140 mmol/L (136-145); Total Protein 7.0 g/dL (6.4-8.2); Triglyceride 71 mg/dL (<150)
== END 2025-02-27 14:20 | disposition home or self-care (01) ==
LOC: LOS 14:21
PROVIDERS: PCP Nurse Practitioner Family; Referring Provider Nurse Practitioner Family; Visit Provider Nurse Practitioner Family
DX: K76.0 Fatty (change of) liver, not elsewhere classified (principal)
CPT/HCPCS: 36415; 80053; 80061

== ENCOUNTER 2025-03-04 03:34 | Outpatient (CLI) | payer OTHER, SELFPAY ==
--- NOTE | 2025-03-04 07:30 | DI.MAMMO_ITS ---
Exam(s) MAMMO SCREENING EXAM: MAMMO SCREENING CLINICAL HISTORY: screening MAMMO Z12.39. TECHNIQUE: Bilateral full field digital CC and MLO mammographic images were obtained with 3D tomosynthesis and utilizing computer aided detection (CAD). COMPARISON: Prior February 2023 mammogram was reviewed. FINDINGS: There has been no significant change in the appearance and distribution of the fibroglandular tissue. Small benign-appearing unchanged nodule in the lateral aspect of the right breast is again noted and has appearance probable benign intramammary lymph node. There are no new spiculated masses nor malignant appearing microcalcification groups. There is no significant architectural distortion nor skin thickening-retraction. IMPRESSION: No radiographic evidence of malignancy. BI-RADS Category 1 - Negative Breast Density - Category B - There are scattered areas of fibroglandular density. Breast density Category C or D implies that the patient has dense breast tissue. Dense breast tissue can make it harder to find cancer on a mammogram. Dense breast tissue is also associated with an increased risk of breast cancer. This information about the result of the mammogram report was provided to the patient to raise their awareness. Use this report when you speak with the patient about their risks for breast cancer, which includes their family history. At that time, you may recommend additional screening tests (Ultrasound or MRI) as these tests may add significant information. A negative radiographic report should not delay biopsy if a dominant or clinically suspicious mass is present. Up to ten percent of cancers are not identified on mammography. A negative report may reinforce clinical impression. Adenosis and dense breasts may obscure an underlying neoplasm. False positive reports average 6 to 10%. Patient will receive a letter notifying them of these results.
== END 2025-03-04 03:54 ==
LOC: DI 03:34
PROVIDERS: PCP Nurse Practitioner Family; Visit Provider Nurse Practitioner Family
DX: Z12.31 Encounter for screening mammogram for malignant neoplasm of breast (principal); R92.323 Mammographic fibroglandular density, bilateral breasts
CPT/HCPCS: 77063; 77067

== ENCOUNTER 2025-03-13 14:26 | Outpatient (REF) | payer OTHER, SELFPAY | END 2025-03-13 14:27 | disposition home or self-care (01) | LOC: LBN 14:26 | PROVIDERS: PCP Nurse Practitioner Family; Visit Provider Nurse Practitioner Family | DX: B37.9 Candidiasis, unspecified (principal) | CPT/HCPCS: 87070; 87205 ==